=== PATIENT | female | born 1990 | race Caucasian/White ===

== ENCOUNTER 2017-05-10 07:43 | Inpatient (IN) ==
--- OUTSIDE RECORDS SUMMARY | 2017-05-14 01:32 | External Medical Summary | Continuity of Care Document ---
:1990 Author Organization [facility] Address [address] [place], [place] [id number] Phone Support Name Relationship Address Phone Td Salazar spouse [address] [phone] [place] [address] Allergies, Adverse Reactions, Alerts Substance Reaction Severity Status No Known Drug Allergies Unknown Active Medications Medication Instructions Dosage Effective Dates Status Comments (start - stop) VITAMINS take 1 tablet by oral - Active (unknown strength) route every day Problems Condition Effective Dates (start - stop) Clinical Status Pap Smear Screening, Cervix - Uterine size-date discrepancy, third - trimester 32 weeks gestation of - Encounter for test, result - positive Encounter for test, result positive state, incidental Irregular Menses Uterine size-date discrepancy, third - trimester 35 weeks gestation of - Uterine size-date discrepancy, third - trimester 31 weeks gestation of - Encntr for suprvsn of normal first - preg, third trimester Uterine size-date discrepancy, third - trimester Encntr for suprvsn of normal first - preg, third trimester 33 weeks gestation of - 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) - (routine) w/o abn findings Pap Smear Screening, Cervix Encntr screen for infections w sexl - mode of transmiss Encounter for screening for oth - infec/parastc diseases Encntr for suprvsn of normal first - preg, first trimester Encounter for screening of - mother 11 weeks gestation of - Encntr for suprvsn of normal first - preg, second trimester 15 weeks gestation of - Encntr for suprvsn of normal first - preg, second trimester 27 weeks gestation of - Encntr for suprvsn of normal first - preg, second trimester 19 weeks gestation of - Encntr for suprvsn of normal first - preg, second trimester 19 weeks gestation of - Encntr for suprvsn of normal first - preg, second trimester 23 weeks gestation of - Encntr for suprvsn of normal first - preg, third trimester 29 weeks gestation of - Procedures Procedure Date Ultrasnd preg uterus, flwup/repeat Results Test Name Date and Time Measure Units Reference Range Abnormal Flag Comments Unknown Advance Directives Directive Yes / No Effective Date File Name Unknown Encounters Encounter Practice Location Reason(s) Diagnoses Date Provider Care Team Description For Visit Members Annamarie Flanagan Uterine size-date Sobbing Referring In Womens discrepancy, 3-201 [place]ionic[place]. Provider: Dipika ARMIREZ, third [id number] 7 700 Ro PO Box weeks gestation Jose Smith, 1522, of Center [address] [place] [address], Suite Center [id number], 120, Blas 120, [place] Panchito Flanagan, tel: [place], [address], [id number]. [place]. tel: tel: [phone] Annamarie Flanagan Uterine size-date Sobbing Referring In Womens discrepancy, 0-201 Dionicio. Provider: Dipika RAMIREZ, third 7 700 Rodesirae Calderón trimesterEncntr Jose Smith, 1522, for suprvsn of Center [address], [facility], preg, third Suite Center [id number], [id number] weeks 120, Blas 120, [place] gestation of Panchito Flanagan, tel: [place], [address], [id number]. [place]. tel: tel: [phone] Annamarie Flanagan Uterine size-date Mar- Sobbing Referring In Womens Ultrasound discrepancy, 3-201 Dionicio. Provider: Dipika RAMIREZ, third 7 700 Ro PO Box weeks gestation Medical Law Luis, 1522, of Center [address] [place] [address], Suite Center , 120, Blas 120, [place] Panchito Flanagan, tel: [place], [address], [id number]. [place]. tel: tel: [phone] Annamarie Flanagan Uterine size-date Mar-0 Sobbing Referring In Womens discrepancy, 6-201 Dionicio. Provider: Dipika RAMIREZ, third 7 700 Ro PO Box weeks gestation Medical Law Luis, 1522, of Center [address] [place], [place] [address]Encntr [facility], for suprvsn of Suite Center , normal first 120, Blas 120, [place] preg, third Panchito Flanagan, tel: [place], [address], [id number]. [place]. tel: tel: [phone] Annamarie Flanagan Encntr for Amadou-1 Peres Referring In Womens suprvsn of normal 9-201 Phyllis. Provider: Dipika RAMIREZ, first preg, third 7 700 Ro Calderón [id number] weeks Medical Thanh Smith, 1522, gestation of Center [address] [place] [address], [place], 120, Center [id number], Panchito, [facility] 120, [place] Panchito RODRIGUEZ, tel:[phone] [place], , [place]. [id number]. tel: tel: [phone] Annamarie Flanagan Encntr for Amadou-0 Peres Referring In Womens suprvsn of normal 5-201 Phyllis. Provider: Dipika RAMIREZ, first preg, 7 700 Ro PO Box second Medical Law Luis, 1522, [email or web address] weeks Center [address] [place] [address], gestation of [place], 120, Center [id number], Panchito Bl[place] 120, [place] Panchito RODRIGUEZ, tel:[phone] [place], , [place]. [id number]. tel: tel:[phone] Annamarie Flanagan Encntr for May-0 Peres Referring In Womens suprvsn of normal 9-201 Phyllis. Provider: Dipika RAMIREZ, first preg, 7 700 Ro MCKEON Box second Medical Law J, 1522, [email or web address] weeks Center [address] [place] [address], gestation of Bl[place], 120, Center [id number], Panchito [facility] 120, [place] Panchito RODRIGUEZ, tel:+[phone] [place], , [place]. [id number]. tel: tel:[phone] Annamarie Flanagan Encntr for Apr-1 Peres Referring In Womens suprvsn of normal 0-201 Phyllis. Provider: Dipika RAMIREZ, first preg, 7 700 Ro Calderón second Jose Law J, 1522, [email or web address] weeks Center [address] [place] [address], gestation of [place]as [place], 120, [place] [id number], Panchito [facility] 120, [place] Panchito RODRIGUEZ, tel:+[phone] [place], , [place]. [id number]. tel: tel:[phone] Annamarie Flanagan Encntr for Apr-1 Peres Referring In Womens Ultrasound suprvsn of normal 0-201 Phyllis. Provider: Dipika RAMIREZ, first preg, 7 700 Ro Law J, 1522, [id number], gestation of [place], 120, [place] [id number], Panchito [facility] 120, [place] Panchito RODRIGUEZ, tel:+[phone] [place], , [place]. [id number]. tel: tel:[phone] Annamarie Flanagan Encntr for Mar-1 Peres Referring In Womens suprvsn of normal 4-201 Phyllis. Provider: Dipika RAMIREZ, first preg, 7 700 Ro Calderón second Jose Law J, 1522, [email or web address] weeks Center [address] [place] [address], gestation of Blas [place], 120, Center [id number], Panchito [facility] 120, [place] Panchito RODRIGUEZ, tel:[phone] [place], , [place]. [id number]. tel: tel:[phone] Annamarie Magallanesntr screen for Oct- Peres Referring In Womens infections w sexl - Phyllis. Provider: Dipika RAMIREZ, mode of 7 700 Ro PO Box transmissEncounte Medical Law J, 1522, r for screening Center [address] [place] [address], for oth , [facility] MICHAEL, infec/parastc 120, Center [id number], diseasesEncntr Panchito, [facility] 120, [place] for suprvsn of Panchito RODRIGUEZ, tel:+ normal first [phone] [place], preg, first , [place]. [id number]. trimesterEncounte tel: tel:[phone] r for [phone] screening of [id number] weeks gestation of Associates Panchito Irregular Menses Sep- Peres Referring In Womens Phyllis. Provider: Dipika RAMIREZ, 7 700 Ro PO Box Medical Law J, 1522, Center [facility], , [facility] Jose [place], 120, Center [id number], Panchito, [facility] 120, [place] Panchito RODRIGUEZ, tel:[phone] [place], , [place]. [id number]. tel: tel:[phone] Annamarie Flanagan Encounter for Law Referring In Womens test, - Ro. Provider: Dipika RAMIREZ, result 7 700 Ro PO Box positiveEncounter Medical Law J, 1522, for Center [address] [place] [address], test, result Dr [facility] MICHAEL, positive 120, Center [id number], state, incidental Flanagan, [facility] 120, [place] Panchito RODRIGUEZ, tel:[phone] [place], , [place]. [id number]. 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 Provider: Dipika RAMIREZ, (routine) w/o abn 6 700 Ro PO Box findingsPap Smear Medical Thanh Smith, 1522, Screening, Center [address], CervixPap Smear , [facility], Screening, Cervix 120, Center [id number], Panchito, [facility] 120, [place] Panchito RODRIUGEZ, tel:[phone] [place], [phone] , [place]. [id number]. tel: tel: [phone] Family History Family Member Diagnosis Age At Onset No family history of Breast Cancer Paternal Grandfather Cardiovascular Disease No family history of Thyroid Disorder No family history of Lung Disease No family history of Venous Thrombosis No family history of Diabetes No family history of Pulmonary Embolism Paternal Grandmother Kidney Disease No family history of Epilepsy No family history of Hypertension No family history of Osteoporosis No family history of Stroke No family history of Colon Cancer No family history of Uterine Cancer No family history of Ovarian Cancer Immunizations Vaccine Date Status Comments Tdap completed Source: New Immunization Record Influenza, injectable, completed Source: New Immunization Record quadrivalent, preservative free, 3 yrs or older Payers Payer name Insurance type Covered constitution party ID Authorization(s) [facility] [id number] [facility] Out Of State [id number] [facility] [id number] [facility] [id number] Social History Type Description Quantity Date Captured Unknown Vital Signs Date / Height Weight BMI Pulse Blood Temperature Respiratory Body Head BMI Time: Rate Pressure Rate Surface Circumference percentile Area Unknown Chief Complaint And Reason For Visit Unknown Chief Complaint And Reason For Visit Reason For Referral Reason For Referral Unknown Plan Of Care Date Type Action Status Appointment Herminia Salazar BOOKED Future Order: Radiology Order Ultrasound OB Follow-up ([id number]) Ordered Future Order: Lab Order Pap Smear With HPV Reflex If ASCUS Ordered ([id number]) Future Order: Radiology Order Complete OB Ultrasound > 14 Ordered Weeks ([id number]) Date Type Problem Goal Intervention Status Start Date Unknown. History Of Present Illness Encounter Date Complaint History Of Present Illness This patient has no known history of present illness Functional Status Encounter Date Functional Assessment Cognitive Assessment Unknown Medications Administered Medication Instructions Dosage Effective Dates (start - stop) Status Comments Drug Treatment Unknown Instructions Date Instruction Additional Information risk factors identified by history anticipated course of care nutrition and weight gain counseling, special diet toxoplasmosis precautions (cats / raw meat) sexual activity exercise indications for ultrasound influenza vaccine environmental / work hazards travel tobacco (ask, advise, assess, assist and arrange) HIV and other routine tests alcohol illicit / recreational drugs use of any medications (including supplements, vitamins, herbs, OTC drugs) smoking counseling domestic violence seat belt use childbirth classes / hospital facilities hospital registration genetic testing new ob handbook
--- OUTSIDE RECORDS SUMMARY | 2017-05-14 01:33 | External Medical Summary | Continuity of Care Document ---
:1990 Author Organization [facility] Address [address] [place], [place] [address] Phone Support Name Relationship Address Phone Td Salazar spouse [address] [phone] [place] [address] Allergies, Adverse Reactions, Alerts Substance Reaction Severity Status No Known Drug Allergies Unknown Active Medications Medication Instructions Dosage Effective Dates Status Comments (start - stop) VITAMINS take 1 tablet by oral - Active (unknown strength) route every day Problems Condition Effective Dates (start - stop) Clinical Status Pap Smear Screening, Cervix - Encntr for suprvsn of normal first - preg, third trimester 37 weeks gestation of - Encounter for test, result - positive Encounter for test, result positive state, incidental Irregular Menses Uterine size-date discrepancy, third - trimester Encntr for suprvsn of normal first - preg, third trimester 39 weeks gestation of - Uterine size-date discrepancy, third - trimester Encounter for screening of - mother 35 weeks gestation of - Uterine size-date discrepancy, third - trimester Encntr for suprvsn of normal first - preg, third trimester 31 weeks gestation of - Pap Smear Screening, Cervix 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) - (routine) w/o abn findings Encntr screen for infections w sexl - mode of transmiss Encounter for screening for oth - infec/parastc diseases Encntr for suprvsn of normal first - preg, first trimester Encounter for screening of - mother 11 weeks gestation of - Uterine size-date discrepancy, third - trimester 32 weeks gestation of - Uterine size-date discrepancy, third - trimester Encntr for suprvsn of normal first - preg, third trimester 33 weeks gestation of - Uterine size-date discrepancy, third - trimester Encntr for suprvsn of normal first - preg, third trimester 38 weeks gestation of - Encntr for suprvsn [...] third trimester 29 weeks gestation of - Encntr for suprvsn of normal first - preg, third trimester 40 weeks gestation of - 36 weeks gestation of - Encntr for suprvsn of normal first - preg, third trimester Procedures Procedure Date OB 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 Provider: Dipika RAMIREZ, first preg, third 7 700 Ro PO Box [email or web address] weeks Medical Pequea J, 1522, gestation of Center [address] [place] [address], [facility], [facility], Suite Center [id number], 120, Blas 120, [place] Panchito Flanagan, tel: [place], [place], [address], [id number]. [place]. tel: tel: [phone] Annamarie Flanagan Uterine size-date Aug-2 Sobbing Referring In Womens discrepancy, 9-201 [place]. Provider: Health ASHLEY, third 7 700 Ro Calderón trimesterEncntr [facility] J, 1522, for suprvsn of Center [address] [place] [address], [address], [facility], preg, third Suite Center [id number], [email or web address] weeks 120, Blas 120, [place] gestation of Panchito Flanagan, tel: [place], [address], [id number]. [place]. tel: tel: [phone] Annamarie Flanagan Uterine size-date Apr-2 Sobbing Referring In Womens discrepancy, 2-201 [place]. Provider: Health ASHLEY, third 7 700 Ro Calderón trimesterEncntr [facility] J, 1522, for suprvsn of Center [address] [place] [address], normal first [facility], [facility], preg, third Suite Center [id number], [id number] weeks 120, Blas 120, [place] gestation of Panchito Flanagan, tel: [place], [place], [address], [id number]. [place]. tel: tel: [phone] Annamarie Kirkland for Aug-1 Sobbing Referring In Womens suprvsn of normal 6-201 [place]. Provider: Health ASHLEY, first preg, third 7 700 Ro Calderón [id number] weeks Medical Law J, 1522, gestation of Center [address] [place] [address], [facility], [facility], Suite Center [id number], 120, Blas 120, [place] Panchito Flanagan, tel: [place], [place], [address], [id number]. [place]. tel: tel: [phone] Annamarie Flanagan 36 weeks Aug-1 Sobbing Referring In Womens gestation of 0-201 [place]. Provider: Dipika RAMIREZ, pregnancyEncntr 7 700 Ro PO Box for suprvsn of Jose Smith, 1522, normal first Center [address] [place], [facility], third [facility], trimester Suite Center [id number], 120, Blas 120, [place] Panchito Flanagan, tel:+ [place], [address], [id number]. [place]. tel: tel: [phone] Annamarie Flanagan Uterine size-date Apr-0 Sobbing Referring In Womens discrepancy, 3-201 [place]. Provider: [facility] ASHLEY, psychiatric 7 700 Ro PO Box trimesterEncounte Jose Smith, 1522, r for Center [address] [place] [address], screening of [facility], [email or web address] weeks Suite Center [id number], gestation of 120, Blas 120, [place] Panchito Flanagan, tel:+ [place], [address], [id number]. [place]. tel: tel: [phone] Annamarie Flanagan Uterine size-date Mar-2 Sobbing Referring In Womens discrepancy, 0-201 [place]. Provider: [facility] ASHLEY, psychiatric 7 700 Ro PO Box trimesterEncntr Jose Smith, 1522, for suprvsn of Center [address] [place] [address], normal first [facility], preg, third Suite Center [id number], [email or web address] weeks 120, Blas 120, [place] gestation of Panchito Flanagan, tel:+ [place], [address], [id number]. [place]. tel: tel: [phone] Annamarie Flanagan Uterine size-date Mar-1 Sobbing Referring In Womens Ultrasound discrepancy, 3- [place]. Provider: Dipika RAMIREZ, third [id number] 7 700 Ro PO Box weeks gestation Jose Smith, 1522, of Center [address] [place] [address], Suite Center [id number], 120, Blas 120, [place] Panchito Flanagan, tel: [place], [address], [id number]. [place]. tel: tel: [phone] Annamarie Flanagan Uterine size-date Mar-0 Sobbing Referring In Womens discrepancy, 6-201 [place]. Provider: Health ASHLEY, third 7 700 Ro Calderón trimesterEncntr Medical Thanh Smith, 1522, for suprvsn of Center [address] [place] [address], [address], Medical MICHAEL, preg, third Suite Center [id number], [id number] weeks 120, Blas 120, [place] gestation of Panchito Flanagan, tel:+ [place], [address], [id number]. [place]. tel: tel: [phone] Annamarie Flanagan Encntr for Amadou-1 Peres Referring In Womens suprvsn of normal 9-201 Phyllis. Provider: Health PA, first preg, third 7 700 Ro MCKEON Box [email or web address] weeks Medical Thanh Smith, 1522, gestation of [place] [address] [place], Blas Duval [facility], 120, Center [id number], [facility], [place] Panchito RODRIGUEZ, tel:[phone] [place], , [place]. [id number]. tel: tel: [phone] Annamarie Flanagan Encntr for Amadou-0 Peres Referring In Womens suprvsn of normal 5-201 Phyllis. Provider: Health PA, first preg, 7 700 Ro Calderón second [facility] Thanh Smith, 1522, [id number] weeks Center [address] [place] [address], gestation of Blas Duval, 120, Center [id number], Panchito [facility] 120, [place] Panchito RODRIGUEZ, tel:[phone] [place], , [place]. [id number]. tel: tel: [phone] Annamarie Flanagan Encntr for May-0 Peres Referring In Womens suprvsn of normal 9-201 Phyllis. Provider: Health PA, first preg, 7 700 Ro Calderón second Jose Thanh Smith, 1522, [id number] weeks [address], gestation of Blas [place], 120, Center [id number], [facility], [place] Panchito RODRIGUEZ, tel: [phone] [place], , [place]. [id number]. tel: tel: [phone] Associates Flanagan Encntr for Apr-1 Peres Referring In Womens suprvsn of normal 0-201 Phyllis. Provider: Dipika RAMIREZ, first preg, 7 700 Ro Law Luis, 1522, [id number] weeks Center [address] [place], gestation of Blas [place], 120, Center [id number], Panchito [facility] 120, [place] Panchito RODRIGUEZ, tel:+ [phone] [place], , [place]. [id number]. tel: tel:+[phone] Annamarie Flanagan Encntr for Apr-1 Peres Referring In Womens Ultrasound suprvsn of normal 0-201 Phyllis. Provider: Dipika RAMIREZ, first preg, [address] [facility] Jose Law Luis, 1522, [id number] weeks Center [address] [place] [address], gestation of Blas [place], 120, Center [id number], Panchito [facility] 120, [place] Panchito RODRIGUEZ, tel:[phone] [place], , [place]. [id number]. tel: tel:+ [phone] Annamarie Flanagan Encntr for Mar-1 Peres Referring In Womens suprvsn of normal 4-201 Phyllis. Provider: Dipika RAMIREZ, first preg, 7 700 Ro Law J, 1522, [id number] weeks Center [address] [place] [address], gestation of Blas Du[place], 120, Center [id number], Panchito [facility] 120, [place] Panchito RODRIGUEZ, tel:[phone] [place], , [place]. [id number]. tel: tel:+[phone] Annamarie Flanagan Encntr screen for Feb-1 Peres Referring In Womens infections w sexl 4-201 Phyllis. Provider: Dipika RAMIREZ, mode of 7 700 Ro Calderón transmissEncounte Jose Law Luis, 1522, r for screening [address], for oth [place], infec/parastc 120, Center [id number], diseasesEncntr Panchito [facility] 120, [place] for suprvsn of Panchito RODRIGUEZ, tel:+[phone] normal first [id number] [place], preg, first , [place]. [id number]. trimesterEncounte tel: tel:316 r for [phone] screening of weeks gestation of Associates Panchito Irregular Menses Peres Referring In Womens 7 Phyllis. Provider: Dipika RAMIREZ, 7 700 Ro PO Box Jose Smith, 1522, Center [facility] [place], , [facility] [place], 120, Center [id number], Panchito [facility] 120, [place] Panchito RODRIGUEZ, tel:[phone] [place], , [place]. [id number]. tel: tel:[phone] Associates Panchito Encounter for Thanh Referring In Women test, Ro. Provider: Dipika RAMIREZ, result 7 700 Ro PO Box positiveEncounter Jose Smith, 1522, for Center [facility] [place], test, result , [facility] Jose RODRIGUEZ, positive 120, Center [id number], state, incidental Flanagan, [facility] 120, [place] Panchito RODRIGUEZ, tel:[phone] [place], , [place]. [id number]. tel: tel:[phone] Annamarie Flanagan Pap Smear Thanh Referring In Womens Screening, 3 Ro. Provider: Dipika RAMIREZ, CervixPap Smear 6 700 Ro PO Box Screening, Jose Smith, 1522, CervixEncntr for Center [address] [place] [address], lining mechanic exam , [facility] Jose RODRIGUEZ, (general) 120, Center [id number], (routine) w/o abn Flanagan, [facility] 120, [place] findings Panchito RODRIGUEZ, tel:[phone] [place], , [place]. [id number]. tel: tel:[phone] Family History Family Member Diagnosis Age At [...] older Payers Payer name Insurance type Covered republican ID Authorization(s) [facility] [id number] [facility] Out Of State [id number] [facility] [id number] [facility] [id number] Social History Type Description Quantity Date Captured Alcohol Use Details Caffeine Use Details Unknown Tobacco Use Status Unknown Smoking Status Never smoker Vital Signs Date / Height Weight BMI Pulse Blood Temperature Respiratory Body Head BMI Time: Rate Pressure Rate Surface Circumference percentile Area 156.00 29.1 119/73 2017 lbs 8 mm[Hg] 4:33 kg/m PM eter (2) Chief Complaint And Reason For Visit Unknown Chief Complaint And Reason For Visit Reason For Referral Reason For Referral Unknown Plan Of Care Date Type Action Status Future Order: Lab Order Pap Smear With HPV Reflex If ASCUS Ordered (WPMPap1) Future Order: Radiology Order Ultrasound OB Follow-up ([id number]) Ordered Future Order: Radiology Order Complete OB Ultrasound > 14 Ordered Weeks ([id number]) Date Type Problem Goal Intervention Status Start [...]
--- OUTSIDE RECORDS SUMMARY | 2017-05-14 01:33 | External Medical Summary | Continuity of Care Document ---
:1990 Author Organization [facility] Address [address] [place], [place] [address] Phone Support Name Relationship Address Phone Td Salazar spouse [address] [phone] [place] [address] Allergies, Adverse Reactions, Alerts Substance Reaction Severity [...] - mother 35 weeks gestation of - Encounter for test, result - positive Encounter for test, result positive state, incidental Irregular Menses Uterine size-date discrepancy, third - trimester Encntr for suprvsn of normal first - preg, third trimester 31 weeks gestation of - Uterine size-date discrepancy, third - trimester 32 weeks gestation of - Uterine size-date discrepancy, third - trimester Encntr for suprvsn of normal first - preg, third trimester 38 weeks gestation of - Uterine size-date discrepancy, third - trimester Encntr for suprvsn of normal first - preg, third trimester 33 weeks gestation of - 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 for physical therapy assistant exam (general) - (routine) w/o abn findings [...] second trimester 19 weeks gestation of - 23 weeks gestation of - Encntr for suprvsn of normal first - preg, second trimester Encntr for suprvsn of normal first - preg, third trimester 29 weeks gestation of - Encntr for suprvsn of normal first - preg, third trimester 36 weeks gestation of - Encntr for suprvsn of normal first - preg, third trimester 37 weeks gestation of - Procedures Procedure Date OB Visit No Charge Cult, pathgnc orgnsm, screen Results Test Name Date and Time Measure Units Reference Range Abnormal Flag Comments Panel Description: STREPTOCOCCUS, GROUP B CULTURE STREPTOCOCCUS, GROUP B 16:00:00 SEE NOTE STREPTOCOCCUS, GROUP B CULTURE CULTURE MICRO NUMBER: [id number] TEST STATUS: FINAL SPECIMEN SOURCE: VAGINAL/ANORECTAL SPECIMEN QUALITY: ADEQUATE RESULT: No group B Streptococcus isolatedTest performed at [id number] [address]Bxfwtlgk: WILL MENA DO,MPH Advance Directives Directive Yes / No Effective Date File Name Unknown Encounters Encounter Practice Location Reason(s) Diagnoses Date Provider Care Team Description For Visit Members Annamarie Flanagan Uterine size-date Aug-2 Sobbing Referring In Womens discrepancy, 2-201 [place]. Provider: Health ASHLEY, third 7 700 [address] Calderón trimesterEncntr Jose Smith, 1522, for suprvsn of Center [address] [place] [address], [facility] first [facility], preg, third Suite Center [id number], [email or web address] weeks 120, Blas 120, [place] gestation of Panchito Flanagan, tel:+ [place], [address], [id number]. [place]. tel: tel: [phone] Annamarie Flanagan Encntr for Apr- Sobbing Referring In Womens suprvsn of normal 6-201 [place]. Provider: Health ASHLEY, first preg, third 7 700 Ro Calderón [id number] weeks Jose Smith, 1522, gestation of Center [address] [place] [address], [facility], Suite Center [id number], 120, Blas 120, [place] Panchito Flanagan, tel: [place], [address], [id number]. [place]. tel: tel: [phone] Annamarie Flanagan Encntr for Apr- Sobbing Referring In Womens suprvsn of normal 0-201 [place]. Provider: Health ASHLEY, first preg, third 7 700 Ro Calderón [id number] weeks Jose Smith, 1522, gestation of Center [address] [place] [address], [facility], Suite Center [id number], 120, Blas 120, [place] Panchito Flanagan, tel:+ [place], [address], [id number]. [place]. tel: tel: [phone] Annamarie Flanagan Uterine size-date Apr-0 Sobbing Referring In Womens discrepancy, 3-201 [place]. Provider: Dipika RAMIREZ, third 7 700 Ro Calderón trimesterEncounte Jose Smith, 1522, r for Center [address] [place] [address], screening of [facility], [id number] weeks Suite Center [id number], gestation of 120, Blas 120, [place] Panchito Fl[place]agan, [place]: [place], [address], [id number]. [place]. tel: tel: [phone] Annamarie Flanagan Uterine size-date Mar-2 Sobbing Referring In Womens discrepancy, 0-201 Dionicio. Provider: Dipika RAMIREZ, third 7 700 Ro Calderón trimesterEncntr Jose Smith, 1522, for suprvsn of [address], preg, third Suite Center [id number], [email or web address] weeks 120, Blas 120, [place] gestation of Panchito Flanagan, tel:+ [place], [address], [id number]. [place]. tel: tel: [phone] Annamarie Flanagan Uterine size-date Mar-1 Sobbing Referring In Womens Ultrasound discrepancy, 3-201 [place]. Provider: Dipika RAMIREZ, third [email or web address] 7 700 Ro MCKEON Box weeks gestation Jose Smith, 1522, of Center [address] [place] [address], Suite Center [id number], 120, Blas 120, [place] Panchito Flanagan, tel: [place], [address], [id number]. [place]. tel: tel: [phone] Annamarie Flanagan Uterine size-date Mar-0 Sobbing Referring In Womens discrepancy, 6-201 [place]. Provider: Dipika RAMIREZ, third 7 700 Ro Calderón trimesterEncntjake Smith, 1522, for suprvsn of [address] [place], preg, third Suite Center [id number], [email or web address] weeks 120, Blas 120, [place] gestation of Panchito Flanagan, tel: [place], [place], [address], [id number]. [place]. tel: tel: [phone] Annamarie Flanagan Encrashid for Amadou-1 Peres Referring In Womens suprvsn of normal 9-201 Phyllis. Provider: Dipika RAMIREZ, first preg, third 7 700 Ro MCKEON Box weeks Jose Smith, 1522, gestation of Center [address] [place] [address], [facility] [place], 120, Center [id number], Flanagan, Blas 120, [place] Panchito RODRIGUEZ, tel:[phone] [place], , [place]. [id number]. tel: tel:[phone] Annamarie Flanagan Encntr for Amadou-0 Peres Referring In Womens suprvsn of normal 5-201 Phyllis. Provider: Dipika RAMIREZ, first preg, 7 700 Ro PO Box second Medical Law J, 1522, [id number] weeks Center [address] [place], gestation of [place], 120, Center [id number], Panchito [facility] 120, [place] Panchito RODRIGUEZ, tel:[phone] [place], , [place]. [id number]. tel: tel:[phone] Annamarie Flanagan 23 weeks May-0 Peres Referring In Womens gestation of 9-201 Phyllis. Provider: Dipika RAMIREZ, pregnancyEncntr 7 Ro PO Box for suprvsn of Medical Law J, 1522, normal first Center [address] [place] [address], preg, second [place], trimester 120, Center [id number], Panchito [facility] 120, [place] Panchito RODRIGUEZ, tel: [phone] [place], , [place]. [id number]. tel: tel:[phone] Annamarie Flanagan Encntr for Apr-1 Peres Referring In Womens suprvsn of normal 0-201 Phyllis. Provider: Dipika RAMIREZ, first preg, 7 Ro PO Stephane second Jose Law J, 1522, [email or web address] weeks Center [address] [place] [address], gestation of [place], 120, Center [id number], Panchito [facility] 120, [place] Panchito RODRIGUEZ, tel: [phone] [place], , [place]. [id number]. tel: tel:[phone] Annamarie Flanagan Encntr for Apr-1 Peres Referring In Womens Ultrasound suprvsn of normal 0-201 Phyllis. Provider: Dipika RAMIREZ, first preg, 7 700 Ro PO Box second Jose Law J, 1522, [id number] weeks Center [address] [place] [address], gestation of [place], 120, Center [id number], Panchito [facility] 120, [place] Panchito RODRIGUEZ, tel: [phone] [place], , [place]. [id number]. tel: tel: [phone] Annamarie Flanagan Encntr for Nov- Peres Referring In Womens suprvsn of normal Phyllis. Provider: Dipika RAMIREZ, first preg, 7 700 Ro PO Box second Medical Thanh J, 1522, [email or web address] weeks Center [facility] [place], gestation of , Blas RODRIGUEZ, 120, Center [id number], [facility], [place] Panchito RODRIGUEZ, tel: [phone] [place], , [place]. [id number]. tel: tel:[phone] Annamarie Flanagan Encntr screen for Oct- Peres Referring In Womens infections w sexl - Phyllis. Provider: Dipika RAMIREZ, mode of 7 700 Ro MCKEON Box transmissEncounte Jose Smith, 1522, r for screening Center [address] [place] [address], for oth Dr [facility] Jose RODRIGUEZ, infec/parastc 120, Center [id number], [facility], [place] for suprvsn of [place], Panchito, tel: normal first [id number] [place], preg, first , [place]. [id number]. trimesterEncounte tel: tel:[phone] r for [phone] screening of weeks gestation of Associates [facility] Irregular Menses Peres Referring In Womens Phyllis. Provider: Dipika RAMIREZ, 7 700 [address] Calderón Jose Law J, 1522, Center [facility] [place], Blas [place], 120, Center [id number], Panchito [facility] 120, [place] Panchito RODRIGUEZ, tel:[phone] [place], , [place]. [id number]. tel: tel:[phone] Annamarie Flanagan Encounter for Sep-0 Law Referring In Womens test, -201 Ro. Provider: Dipika RAMIREZ, result 7 700 Ro PO Box positiveEncounter Jose Smith, 1522, for Center 700 [place], test, result [facility], positive 120, Center [id number], state, incidental Flanagan, [facility] 120, Panchito RODRIGUEZ, tel:[phone] [place], , . [id number]. tel: tel:[phone] Associates [facility] Encntr for physical therapy assistant Thanh Referring In Womens exam (general) 3-201 Ro. Provider: [facility] ASHLEY, (routine) w/o abn 6 700 Ro PO Box findingsPap Smear Medical Thanh J, 1522, Screening, Center [address] [place], CervixPap Smear Dr [facility], Screening, Cervix 120, Center [id number], Flanagan, [facility] 120, MICHAELPanchito, tel:[phone] [place], , [place]. [id number]. tel: tel:[phone] Family History Family Member Diagnosis Age At [...] older Payers Payer name Insurance type Covered democrat ID Authorization(s) [facility] [id number] [facility] Out Of State [id number] [facility] [id number] [facility] [id number] Social History Type Description Quantity Date Captured Alcohol Use Details Caffeine Use Details Tobacco Use Status Never smoked tobacco Smoking Status Never smoker Vital Signs Date / Height Weight BMI Pulse Blood Temperature Respiratory Body Head BMI Time: Rate Pressure Rate Surface Circumference percentile Area 155.20 29.0 125/72 lbs 4 mm[Hg] 3:47 kg/m PM eter (2) 9 3:43 kg/m PM eter (2) Chief Complaint And Reason For Visit Unknown Chief Complaint And Reason For Visit Reason For Referral Reason For Referral Unknown Plan Of Care Date Type Action Status Appointment Herminia Salazar BOOKED Appointment Herminia Salazar [facility] [facility]- BOOKED [place] Future Order: Radiology Order Ultrasound OB Follow-up ([id number]) Ordered Future Order: Lab Order Pap Smear With HPV Reflex If ASCUS Ordered ([id number]) Future Order: Radiology Order Complete OB Ultrasound > 14 Ordered Weeks ([id number]) Date Type Problem Goal Intervention Status Start [...] tobacco (ask, advise, assess, assist and arrange) alcohol HIV and other routine tests illicit / recreational drugs use of any medications (including supplements, vitamins, herbs, OTC drugs) smoking counseling domestic violence seat belt use childbirth classes / hospital facilities hospital registration genetic testing new ob handbook
--- OUTSIDE RECORDS SUMMARY | 2017-05-14 01:33 | External Medical Summary | Continuity of Care Document ---
:1990 Author Organization [facility] [employer] [facility] Address [address] [place], [place] [address] Phone Support Name Relationship Address Phone Td Salazar spouse [address] [phone] [place] [address] Allergies, Adverse Reactions, Alerts Substance Reaction Severity [...] third trimester 33 weeks gestation of - Encounter for test, result - positive Encounter for test, result positive state, incidental Irregular Menses Uterine size-date discrepancy, third - trimester Encounter for screening of - mother 35 weeks gestation of - Uterine size-date discrepancy, third - trimester Encntr for suprvsn of normal first - preg, third trimester 31 weeks gestation of - Uterine size-date discrepancy, third - trimester 32 weeks gestation of - 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 Provider: Dipika RAMIREZ, third 7 700 Ro Calderón trimesterEncounte Jose Smith, 1522, r for Center [address] [place] [address], screening of [facility], [email or web address] weeks Suite Center [id number], gestation of 120, Blas 120, [place] Panchito Flanagan, tel:+ [place] RODRIGUE[place], [address], [id number]. [place]. tel: tel: [phone] Annamarie Flanagan Uterine size-date Sobbing Referring In Womens discrepancy, 0-201 Dionicio. Provider: Dipika RAMIREZ, third 7 700 Ro Calderón trimesterEncntr Jose Smith, 1522, for suprvsn of Center [address] [place] [address], normal first [facility], [facility], preg, third Suite Center [id number], [id number] weeks 120, Blas 120, [place] gestation of Panchito Flanagan, tel: [place], [address], [id number]. [place]. tel: tel: [phone] Annamarie Flanagan Uterine size-date Mar- Sobbing Referring In Womens Ultrasound discrepancy, 3- [place]. Provider: Health ASHLEY, third [email or web address] 7 700 Ro PO Box weeks gestation Medical Law Luis, 1522, of Center [address] [place] [address], [facility], [facility], Suite Center [id number], 120, Blas 120, [place] Panchito Flanagan, tel: [place], [address], [id number]. [place]. tel: tel: [phone] Annamarie Flanagan Uterine size-date Mar-0 Sobbing Referring In Womens discrepancy, 6- [place]. Provider: Health ASHLEY, third 7 700 Ro PO Box trimesterEncntr Medical [place] Luis, 1522, for suprvsn of [address], allamuchy first [facility], [facility] [place], preg, third Suite Center [id number], weeks 120, Blas 120, [place] gestation of Panchito Flanagan, tel: [place], [address], [id number]. [place]. tel: tel: [phone] Annamarie Kirkland for Amadou-1 Peres Referring In Womens suprvsn of normal 9-201 Phyllis. Provider: Health ASHLEY, first preg, third 7 700 Ro PO Box [id number] weeks Medical Thanh Smith, 1522, gestation of Center [address] [place] [address], [place], 120, Center [id number], Flanagan, Blas 120, [place] Panchito RODRIGUEZ, tel:[phone] [place], , [place]. [id number]. tel: tel: [phone] Annamarie Kirkland for Amadou-0 Peres Referring In Womens suprvsn of normal 5-201 Phyllis. Provider: Health ASHLEY, first preg, 7 700 Ro PO Box second Medical Law J, 1522, [email or web address] weeks Center [address] [place] [address], gestation of [place], 120, Center [id number], Panchito, Blas 120, [place] Panchito RODRIGUEZ, tel:+ [phone] [place], , [place]. [id number]. tel: tel:[phone] Annamarie Flanagan Encntr for May-0 Peres Referring In Womens suprvsn of normal 9-201 Phyllis. Provider: Dipika RAMIREZ, first preg, 7 700 Ro Calderón donald Jose Law Luis, 1522, [id number] weeks Center [address] [place] [address], gestation of [place], 120, Center [id number], Panchito, [facility] 120, [place] Panchito RODRIGUEZ, tel:[phone] [place], , [place]. [id number]. tel: tel:[phone] Annamarie Flanagan Encntr for Apr-1 Peres Referring In Womens suprvsn of normal 0-201 Phyllis. Provider: Dipika RAMIREZ, first preg, 7 Ro Calderón donald Jose Thanh Smith, 1522, [email or web address], gestation of [place], 120, [place] [id number], [facility], [place] Panchito RODRIGUEZ, tel:[phone] [place], , [place]. [id number]. tel: tel:[phone] Annamarie Flanagan Encntr for Apr-1 Peres Referring In Womens Ultrasound suprvsn of normal 0-201 Phyllis. Provider: Dipika RAMIREZ, first preg, 7 Ro Calderón donald Jose Thanh Smith, 1522, [email or web address] weeks [address], gestation of [place], 120, Center [id number], Panchito, [facility] 120, [place] Panchito RODRIGUEZ, tel:[phone] [place], , [place]. [id number]. tel: tel:[phone] Annamarie Flanagan Encntr for Mar-1 Peres Referring In Womens suprvsn of normal 4-201 Phyllis. Provider: Dipika RAMIREZ, first preg, 7 Ro Calderón donald Jose Law Luis, 1522, [email or web address], gestation of [place], 120, Center [id number], Panchito [facility] 120, [place] Panchito RODRIGUEZ, tel:[phone] [place], , [place]. [id number]. tel: tel:[phone] Annamarie Magallanesntr screen for Oct- Peres Referring In Womens infections w sexl - Phyllis. Provider: Dipika RAMIREZ, mode of 7 700 Ro Calderón transmissEncounte Jose Thanh Smith, 1522, r for screening Center [address] [place] [address], for oth , Blas RODRIGUEZ, infec/parastc 120, Center [id number], diseasesEncntr Panchito [facility] 120, [place] for suprvsn of Panchito RODRIGUEZ, tel:[phone] normal first [id number] [place], preg, first , [place]. [id number]. trimesterEncounte tel: tel:316 r for [phone] screening of weeks gestation of Annamarie Flanagan Irregular Menses Sep- Peres Referring In Womens Phyllis. Provider: Dipika RAMIREZ, 7 700 Ro PO Box Jose Thanh Smith, 1522, Center [facility] [place], 120, Center [id number], Panchito [facility] 120, [place] Panchito RODRIGUEZ, tel:[phone] [place], , [place]. [id number]. tel: tel:+[phone] Annamarie Flanagan Encounter for Law Referring In Womens test, Ro. Provider: Health ASHLEY, result 7 700 Ro PO Box positiveEncounter Medical Thanh Smith, 1522, for Center [address] [place] [address], test, result [place], positive 120, Center [id number], state, incidental Panchito [facility] 120, [place] Panchito RODRIGUEZ, tel:[phone] [place], , [place]. [id number]. tel: tel:[phone] Annamarie Flanagan Encntr for emergency department physician Law Referring In Womens exam (general) 3-201 Ro. Provider: Health ASHLEY, (routine) w/o abn 6 700 Ro PO Box findingsPap Smear Medical Thanh Smith, 1522, Screening, Center [address] [place], CervixPap Smear , [facility] [place], Screening, Cervix 120, Center [id number], Flanagan, Blas 120, [place] MICHAEL Flanagan, tel:[phone] [place], [address] , [place]. [id number]. tel: tel: [phone] Family History Family Member Diagnosis Age At [...] name Insurance type Covered democrat ID Authorization(s) [facility] [id number] [facility] Out Of State [id number] [facility] [id number] [facility] [id number] Social History Type Description Quantity Date Captured Alcohol Use Details Caffeine Use Details Unknown Tobacco Use Status Unknown Smoking Status Never smoker Vital Signs Date / Height Weight BMI Pulse Blood Temperature Respiratory Body Head BMI Time: Rate Pressure Rate Surface Circumference percentile Area 152.80 28.5 / lbs 9 mm[Hg] 3:41 kg/m PM eter (2) Chief Complaint And Reason For Visit Unknown Chief Complaint And Reason For Visit Reason For Referral Reason For Referral Unknown Plan Of Care Date Type Action Status Appointment Herminia Salazar BOOKED Future Order: Radiology Order Ultrasound OB Follow-up ([id number]) Ordered Future Order: Lab Order Pap Smear With HPV Reflex If ASCUS Ordered ([id number]) Future Order: Radiology Order Complete OB Ultrasound > 14 Ordered Weeks ([id number]) Date Type Problem Goal Intervention Status Start [...]
--- OUTSIDE RECORDS SUMMARY | 2017-05-14 01:33 | External Medical Summary | Continuity of Care Document ---
:1990 Author Organization [facility] Address [address] [place], [place] [id number] Phone Support Name Relationship Address Phone Td Salazar spouse [address] [phone] [place] [address] Allergies, Adverse Reactions, Alerts Substance Reaction Severity Status No Known Drug Allergies Unknown Active Medications Medication Instructions Dosage Effective Dates Status Comments (start - stop) VITAMINS take 1 tablet by oral - Active (unknown strength) route every day Problems Condition Effective Dates (start - stop) Clinical Status Pap Smear Screening, Cervix - Encounter for test, result - positive Encounter for test, result positive state, incidental Irregular Menses Uterine size-date discrepancy, third - trimester 35 weeks gestation of - Uterine size-date discrepancy, third - trimester 31 weeks gestation of - Encntr for suprvsn of normal first - preg, third trimester Uterine size-date discrepancy, third - trimester 32 weeks gestation of - Uterine size-date discrepancy, third - trimester Encntr for suprvsn of normal first - preg, third trimester 33 weeks gestation of - 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 Provider: Dipika RAMIREZ, third [email or web address] 7 700 Ro PO Box weeks gestation Jose Smith, 1522, of Center [address] [place] [address], Suite Center [id number], 120, Blas 120, [place], [place]: [place], [address], [id number]. [place]. tel: tel: [phone] Annamarie Flanagan Uterine size-date Sobbing Referring In Womens discrepancy, 0-201 Dionicio. Provider: Dipika RAMIREZ, third 7 700 Rocarmella Calderón trimesterEncntr Jose Smith, 1522, for suprvsn of Center [address] [place] [address], [facility], preg, third Suite Center [id number], [email or web address] weeks 120, Blas 120, [place] gestation of Panchito Flanaagn, tel: [place], [address], [id number]. [place]. tel: tel: [phone] Annamarie Flanagan Sobbing Referring In Womens 3-201 Chauncey. Provider: Dipika RAMIREZ, 7 700 Ro Calderón Jose Smith, 1522, Center [address] [place] [address], Suite Center [id number], 120, Blas 120, [place] Panchito [place], [place]: [place], [address], [id number]. [place]. tel: tel: [phone] Annamarie Flanagan Uterine size-date Mar- Sobbing Referring In Womens Ultrasound discrepancy, 3-201 Chauncey. Provider: Dipika RAMIREZ, third 7 700 Ro Calderón weeks gestation Jose Thanh Smith, 1522, of Center [address] [place] [address], Suite Center [id number], 120, Blas 120, [place] Panchito Fl[place]agan, tel: [place], [address], [id number]. [place]. tel: tel: [phone] Annamarie Flanagan Uterine size-date Mar-0 Sobbing Referring In Womens discrepancy, 6-201 Chauncey. Provider: Dipika RAMIREZ, third [email or web address] 7 700 Ro Calderón weeks gestation Jose Thanh Smith, 1522, of Center [address] [place] [address], for suprvsn of Suite Center [id number], normal first 120, Blas 120, [place] preg, third Panchito Flanagan, tel: [place], [address], [id number]. [place]. tel: tel: [phone] Annamarie Kirkland for Amadou-1 Peres Referring In Womens suprvsn of normal 9-201 Phyllis. Provider: Dipika RAMIREZ, first preg, third 7 700 Ro Calderón [email or web address] weeks Jose Smith, 1522, gestation of Center [address] [place] [address], , [facility] [place], 120, Center [id number], Flanagan, Blas 120, [place] Panchito RODRIGUEZ, tel:[phone] [place], , [place]. [id number]. tel: tel: [phone] Associates Flanagan Encntr for Amadou-0 Peres Referring In Womens suprvsn of normal 5-201 Phyllis. Provider: Dipika RAMIREZ, first preg, 7 700 Ro Law Luis, 1522, weeks Center [address] [place] [address], gestation of Blas Du[place], 120, Center [id number], Panchito, [facility] 120, [place] Panchito RODRIGUEZ, tel:[phone] [place], , [place]. [id number]. tel: tel:[phone] Annamarie Flanagan Encntr for May-0 Peres Referring In Womens suprvsn of normal 9-201 Phyllis. Provider: Dipika RAMIREZ, first preg, 7 Ro Law Luis, 1522, [id number] weeks Center [address] [place] [address], gestation of Blas Duval, 120, Center [id number], Panchito [facility] 120, [place] Panchito RODRIGUEZ, tel:[phone] [place], , [place]. [id number]. tel: tel: [phone] Annamarie Flanagan Encntr for Apr-1 Peres Referring In Womens suprvsn of normal 0-201 Phyllis. Provider: Dipika RAMIREZ, first preg, 7 Ro Law Luis, 1522, [email or web address] weeks Center [address] [place] [address], gestation of Blas Duval, 120, Center [id number], Panchito [facility] 120, [place] Panchito RODRIGUEZ, tel:[phone] [place], , [place]. [id number]. tel: tel:[phone] Annamarie Flanagan Encntr for Apr-1 Peres Referring In Womens Ultrasound suprvsn of normal 0-201 Phyllis. Provider: Dipika RAMIREZ, first preg, 7 Ro Smith, 1522, [id number] weeks Center [address] [place] [address], gestation of Blas Duval, 120, Center [id number], Panchito, [facility] 120, [place] Panchito RODRIGUEZ, tel:[phone] [place], , [place]. [id number]. tel: tel:[phone] Annamarie Flanagan Encntr for Nov-1 Peres Referring In Womens suprvsn of normal - Phyllis. Provider: Dipika RAMIREZ, first preg, 7 700 Ro PO Box second Medical Law J, 1522, [id number] [facility] [place], gestation of Dr, Blas RODRIGUEZ, 120, Center [id number], Panchito [facility] 120, [place] Panchito RODRIGUEZ, tel: [phone] [place], , [place]. [id number]. tel: tel:[phone] Annamarie Flanagan Encntr screen for Feb- Peres Referring In Womens infections w sexl - Phyllis. Provider: Dipika RAMIREZ, mode of 7 700 Ro Calderón transmissEncounte Jose Thanh Smith, 1522, r for screening Center [address] [place] [address], for oth , Blas RODRIGUEZ, infec/parastc 120, Center [id number], [facility]ntr [facility], [place] for suprvsn of KSPanchito, tel:+ normal first [phone] [place], preg, first , [place]. [id number]. trimesterEncounte tel: tel: r for [phone] screening of [email or web address] weeks gestation of Annamarie Flanagan Irregular Menses Sep- Peres Referring In Womens -201 Phyllis. Provider: Dipika RAMIREZ, 7 700 Ro Calderón Jose Law J, 1522, Center [facility] [address] Medical [place], 120, Center [id number], Panchito [facility] 120, [place] Panchito RODRIGUEZ, tel: [phone] [place], , [place]. [id number]. tel: tel:[phone] Annamarie Flanagan Encounter for Osmel-0 Law Referring In Womens test, -201 Ro. Provider: Dipika RAMIREZ, result 7 700 Ro PO Box positiveEncounter Medical Thanh Smith, 1522, for Center [facility] [place], test, result Blas Duval, positive 120, Center [id number], state, incidental Flanagan, [facility] 120, [place] MICHAEL Flanagan, tel:[phone] MIC[place]EL, , . [id number]. tel: tel:[phone] [facility] Encntr for chronic manager Thanh Referring In Womens exam (general) 3-201 Ro. Provider: Health PA, (routine) w/o abn 6 700 Ro PO Box findingsPap Smear Medical Thanh J, 1522, Screening, Center 700 [place], CervixPap Smear , [facility], Screening, Cervix 120, Center [id number], Flanagan, [facility] 120, Panchito RODRIGUEZ, tel:[phone] MICHAEL, , . [id number]. tel: tel:[phone] Family History Family Member Diagnosis Age At [...] older Payers Payer name Insurance type Covered libertarian ID Authorization(s) [facility] [id number] [facility] Out Of State [id number] [facility] [id number] [facility] [id number] Social History Type Description Quantity Date Captured Alcohol Use Details Caffeine Use Details Unknown Tobacco Use Status Unknown Smoking Status Never smoker Vital Signs Date / Height Weight BMI Pulse Blood Temperature Respiratory Body Head BMI Time: Rate Pressure Rate Surface Circumference percentile Area 3 4:35 kg/m PM eter (2) Chief Complaint And Reason For Visit Unknown Chief Complaint And Reason For Visit Reason For Referral Reason For Referral Unknown Plan Of Care Date Type Action Status Appointment Herminia Salazar BOOKED Future Order: Radiology Order Ultrasound OB Follow-up ([id number]) Ordered Future Order: Lab Order Pap Smear With HPV Reflex If ASCUS Ordered ([id number]) Future Order: Radiology Order Complete OB Ultrasound > 14 Ordered Weeks ([id number]) Date Type Problem Goal Intervention Status Start [...]
--- OUTSIDE RECORDS SUMMARY | 2017-05-14 01:33 | External Medical Summary | Continuity of Care Document ---
:1990 Author Organization [facility] Address [address] [place], [place] [id number] Phone Support Name Relationship Address Phone Td Salazar spouse [address] [phone] [place] [address] Allergies, Adverse Reactions, Alerts Substance Reaction Severity [...] third trimester 31 weeks gestation of - Encounter for test, result - positive Encounter for test, result positive state, incidental Irregular Menses Uterine size-date discrepancy, third - trimester 32 weeks gestation of - Uterine size-date discrepancy, third - trimester Encntr for suprvsn of normal first - preg, third trimester 33 weeks gestation of - 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 (general) - (routine) w/o abn findings [...] second trimester 27 weeks gestation of - 19 weeks gestation of - Encntr for [...] Procedures Procedure Date OB Visit No Charge Immuniz admnin, 1 vac, sngl/combo 19 Yrs + TDAP VACCINE >7 IM Results Test Name Date and Time Measure Units Reference Range Abnormal Flag Comments Unknown Advance Directives Directive Yes / No Effective Date File Name Unknown Encounters Encounter Practice Location Reason(s) Diagnoses Date Provider Care Team Description For Visit Members Annamarie Flanagan Uterine size-date Sobbing Referring In Womens discrepancy, 0-201 Dionicio. Provider: Dipika RAMIREZ, third 7 700 Ro PO Box trimesterEncntr Jose Smith, 1522, for suprvsn of Center [address] [place] [address], preg, third Suite Center [id number], [email or web address] weeks 120, Blas 120, [place] gestation of Panchito Flanagan, tel:+ [place], [address], [id number]. [place]. tel: tel: [phone] Annamarie Flanagan Uterine size-date Sobbing Referring In Womens Ultrasound discrepancy, 3-201 Dionicio. Provider: Dipika RAMIREZ, third [email or web address] 7 700 Ro PO Box weeks gestation Jose Smith, 1522, of Center [address] [place] [address], Suite Center [id number], 120, Blas 120, [place] Panchito Flanagan, tel: [place], [place], [address], [id number]. [place]. tel: tel: [phone] [facility] Uterine size-date Mar- Sobbing Referring In Womens discrepancy, 6-201 Dionicio. Provider: Health ASHLEY, third 7 700 Ro PO Box trimesterEncntr Medical [facility], 1522, for suprvsn of Center [address] [place] [address], [address], Medical [place], preg, third Suite Center [id number], [email or web address] weeks 120, Blas 120, [place] gestation of Panchito Flanagan, tel: [place], [address], [id number]. [place]. tel: tel: [phone] [facility] Encntr for Amadou-1 Peres Referring In Womens suprvsn of normal - Phyllis. Provider: Health ASHLEY, first preg, third 7 700 Ro PO Box [email or web address] weeks Medical [facility], 1522, gestation of Center [address] [place] [address], Blas Duval [place], 120, Center [id number], Panchito, [facility] 120, [place] Panchito RODRIGUEZ, tel: [phone] [place], , [place]. [id number]. tel: tel: [phone] Annamarie Magallanesntr for Amadou-0 Peres Referring In Womens suprvsn of normal 5-201 Phyllis. Provider: Dipika RAMIREZ, first preg, 7 700 Ro PO Box second Medical [facility], 1522, [id number] weeks Center [address] [place] [address], gestation of Blas Duval, 120, Center [id number], Panchito, [facility] 120, [place] Panchito RODRIGUEZ, tel: [phone] [place], , [place]. [id number]. tel: tel: [phone] Annamarie Flanagan 23 weeks May-0 Peres Referring In Womens gestation of 9-201 Phyllis. Provider: Dipika RAMIREZ, pregnancyEncntr 7 700 Ro PO Box for suprvsn of Medical [facility], 1522, normal first Center [address] [place] [address], preg, second Blas Duval, trimester 120, Center [id number], Panchito Blas 120, [place] Panchito RODRIGUEZ, tel:+ [phone] [place], , [place]. [id number]. tel: tel:[phone] Annamarie Flanagan Encntr for Apr-1 Peres Referring In Womens suprvsn of normal 0-201 Phyllis. Provider: Dipika RAMIREZ, first preg, 7 700 Ro PO Box second Medical Thanh Smith, 1522, [id number] weeks Center [address] [place] [address], gestation of Blas Du[place], 120, Center [id number], Panchito, [facility] 120, [place] Panchito RODRIGUEZ, tel:[phone] [place], , [place]. [id number]. tel: tel:[phone] Annamarie Flanagan 19 weeks Apr-1 Peres Referring In Womens Ultrasound gestation of 0-201 Phyllis. Provider: Dipika RAMIREZ, pregnancyEncntr 7 700 Ro PO Box for suprvsn of Jose Smith, 1522, normal first Center [address] [place] [address], preg, second , [facility] Jose RODRIGUEZ, trimester 120, Center [id number], Panchito, [facility] 120, [place] Panchito RODRIGUEZ, tel:[phone] [place], , [place]. [id number]. tel: tel:[phone] Annamarie Magallanesntr for Mar-1 Peres Referring In Womens suprvsn of normal 4-201 Phyllis. Provider: Dipika RAMIREZ, first preg, 7 700 Ro PO Box [facility] Thanh Smith, 1522, [id number] weeks Center [address] [place] [address], gestation of Blas Duval, 120, Center [id number], Panchito, [facility] 120, [place] Panchito RODRIGUEZ, tel:[phone] [place], , [place]. [id number]. tel: tel:[phone] Annamarie Flanagan Encntr screen for Feb-1 Peres Referring In Womens infections w sexl 4-201 Phyllis. Provider: Dipika RAMIREZ, mode of 7 700 Ro PO Box transmissEncounte Jose Smith, 1522, r for screening Center [address] [place] [address], for oth Blas [place], infec/parastc 120, Center [id number], diseasesEncntr Panchito [facility] 120, [place] for suprvsn of Panchito RODRIGUEZ, tel:+[phone] normal first [place], preg, first , [place]. [id number]. trimesterEncounte tel: tel:[phone] r for [phone] screening of [id number] weeks gestation of [facility] Irregular Menses Peres Referring In Womens Phyllis. Provider: Dipika RAMIREZ, 7 700 Ro PO Box Medical Thanh Smith, 1522, Center 700 [place], Blas [place], 120, Center [id number], Panchito [facility] 120, [place] Panchito RODRIGUEZ, tel:[phone] [place], , [place]. [id number]. tel: tel:[phone] Annamarie Flanagan Encounter for Thanh Referring In Womens test, Ro. Provider: Health ASHLEY, result 7 700 Ro PO Box positiveEncounter Medical Thanh Smith, 1522, for Center 700 [place], test, result Blas [place], positive 120, Center [id number], state, incidental Panchito [facility] 120, [place] Panchito RODRIGUEZ, tel:[phone] [place], , [place]. [id number]. tel: tel:[phone] Annamarie Flanagan Encntr for director of clinical education Thanh Referring In Womens exam (general) - Ro. Provider: Health ASHLEY, (routine) w/o abn 6 700 Ro PO Box findingsPap Smear Jose Smith, 1522, Screening, Center 700 Ang[place], CervixPap Smear Blas [place], Screening, Cervix 120, Center [id number], Panchito [facility] 120, [place] Panchito RODRIGUEZ, tel:[phone] [place]HAEL, , [place]. [id number]. tel: tel:[phone] Family History Family Member Diagnosis Age At [...] name Insurance type Covered democrat ID Authorization(s) [facility] [id number] [facility] Out Of State [id number] [facility] [id number] [facility] [id number] Social History Type Description Quantity Date Captured Alcohol Use Details Caffeine Use Details Unknown Tobacco Use Status Unknown Smoking Status Never smoker Vital Signs Date / Height Weight BMI Pulse Blood Temperature Respiratory Body Head BMI Time: Rate Pressure Rate Surface Circumference percentile Area 149.30 27.9 116/73 -2017 lbs 3 mm[Hg] 3:52 kg/m PM eter (2) 149.30 27.9 -2017 lbs 3 3:51 kg/m PM eter (2) Chief Complaint And Reason For Visit Unknown Chief Complaint And Reason For Visit Reason For Referral Reason For Referral Unknown Plan Of Care Date Type Action Status Appointment Herminia Salazar BOOKED Future Order: Radiology Order Ultrasound OB Follow-up ([id number]) Ordered Future Order: Lab Order Pap Smear With HPV Reflex If ASCUS Ordered ([id number]) Future Order: Radiology Order Complete OB Ultrasound > 14 Ordered Weeks ([id number]) Date Type Problem Goal Intervention Status Start [...] influenza vaccine environmental / work hazards travel HIV and other routine tests tobacco (ask, advise, assess, assist and arrange) alcohol illicit / recreational drugs use of any medications (including supplements, vitamins, herbs, OTC drugs) smoking counseling domestic violence seat belt use childbirth classes / hospital facilities hospital registration genetic testing new ob handbook
--- OUTSIDE RECORDS SUMMARY | 2017-05-14 01:33 | External Medical Summary | Continuity of Care Document ---
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) - (routine) w/o abn findings Pap Smear Screening, Cervix Encntr for suprvsn of normal first - preg, first trimester Encntr screen for infections w sexl - mode of transmiss Encounter for screening for oth - infec/parastc diseases Encounter for screening of - mother 11 weeks gestation of - Encntr for suprvsn of normal first - preg, second trimester 15 weeks gestation of - Encntr for suprvsn of normal first - preg, second trimester 27 weeks gestation of - Uterine size-date discrepancy, third - trimester Encntr for suprvsn of normal first - preg, third trimester 33 weeks gestation of - Encntr for suprvsn of normal first - preg, second trimester 19 weeks gestation of - 19 weeks gestation [...] Procedure Date OB Visit No 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 Provider: formerly [facility], third 7 [address] MCKEON Box trimesterEncntr Medical Thanh Smith, 1522, for suprvsn of Center [address], [address], [place], preg, third Suite Center [id number], weeks 120, Blas 120, [place] gestation of Panchito Flanagan, tel: MICHAEL, MICHAEL, [address], [id number]. [place]. tel: tel: [phone] Annamarie Flanagan Uterine size-date Aug-2 Sobbing Referring In Womens discrepancy, 2-201 Dionicio. Provider: Dipika RAMIREZ, third 7 [address] Calderón trimesterEncntr Jose Smith, 1522, for suprvsn of Center [address] [place] [address], machipongo first [facility], preg, third Suite Center [id number], weeks 120, Bals 120, [place] gestation of Panchito Flanagan, tel: MICHAEL RODIRGUEZ, [address], [id number]. [place]. tel: tel: [phone] Annamarie Flanagan Encntr for Aug-1 Sobbing Referring In Womens suprvsn of normal 6-201 Velva. Provider: Dipika RAMIREZ, first preg, third 7 700 [address] Calderón weeks Jose Smith, 1522, gestation of Center [address] [place] [address], Suite Center [id number], 120, Blas 120, [place] Panch[place] Flanagan, tel: MICHAEL MICHAEL, [address], [id number]. [place]. tel: tel: [phone] Annamarie Flanagan Encntr for Aug-1 Sobbing Referring In Womens suprvsn of normal 0-201 Velva. Provider: Dipika RAMIREZ, first preg, third 7 700 [address] Calderón [email or web address] weeks Jose Smith, 1522, gestation of Center [address] [place] [address], [facility], Suite Center [id number], 120, Blas 120, [place] P[place] Flanagan, tel: MICHAEL MICHAEL, 114, [id number]. [place]. tel: tel: [phone] Annamarie Flanagan Uterine size-date Aug-0 Sobbing Referring In Womens discrepancy, 3-201 Velva. Provider: Dipika RAMIREZ, third 7 [address] Calderón trimesterEncounte Jose Smith, 1522, r for Center [address] [place] [address], screening of [facility], [email or web address] weeks Suite Center [id number], gestation of 120, Blas 120, [place] Panch[place] Flanagan, tel: MICHAEL RODRIGUEZ, [address], [id number]. [place]. tel: tel: [phone] Annamarie Flanagan Uterine size-date Yasmani-2 Sobbing Referring In Womens discrepancy, 0-201 Velva. Provider: Dipika RAMIREZ, third 7 700 [address] Calderón trimesterEncntr Jose Smith, 1522, for suprvsn of Center [address] [place] [address], [facility], preg, third Suite Center [id number], [email or web address] weeks 120, Blas 120, [place] gestation of Panchito Flanagan, tel: MICHAEL RODRIGUEZ, [address], [id number]. [place]. tel: tel: [phone] Annamarie Flanagan Uterine size-date Yasmani-1 Sobbing Referring In Womens Ultrasound discrepancy, 3-201 Velva. Provider: Dipika RAMIREZ, third [email or web address] 7 700 [address] MCKEON Box weeks gestation Jose Smith, 1522, of Center [address] [place] [address], Suite Center [id number], 120, Blas 120, [place] P[place] Flanagan, tel: MICHAEL MICHAEL, [address], [id number]. [place]. tel: tel: [phone] Annamarie Flanagan Uterine size-date Yasmani-0 Sobbing Referring In Womens discrepancy, 6-201 Velva. Provider: Dipika RAMIREZ, third 7 700 [address] Calderón trimesterEncntr Jose Smith, 1522, for suprvsn of Center [address] [place] [address], [facility] MICHAEL, preg, third Suite Center [id number], [email or web address] weeks 120, Blas 120, [place] gestation of Panchito Flanagan, tel: MICHAEL RODRIGUEZ, [address], [id number]. [place]. tel: tel: [phone] Annamarie Kirkland for Amadou-1 Peres Referring In Womens suprvsn of normal 9-201 Phyllis. Provider: Dipika RAMIREZ, first preg, third 7 700 Ro PO Box [email or web address] weeks Medical Law J, 1522, gestation of Center [address], [place], 120, Center [id number], Panchito [facility] 120, [place] Panchito RODRIGUEZ, tel:+ [phone] [place], , [place]. [id number]. tel: tel:[phone] Annamarie Magallanesntr for Amadou-0 Peres Referring In Womens suprvsn of normal 5-201 Phyllis. Provider: Dipika RAMIREZ, first preg, 7 700 Ro PO Box second Medical Law J, 1522, [email or web address] weeks Center [address], gestation of Blas [place], 120, Center [id number], Panchito [facility] 120, [place] Panchito RODRIGUEZ, tel:[phone] [place], , [place]. [id number]. tel: tel:[phone] Annamarie Flanagan 23 weeks May-0 Peres Referring In Womens gestation of 9-201 Phyllis. Provider: Dipika RAMIREZ, pregnancyEncntr 7 700 Ro PO Box for suprvsn of Medical Law J, 1522, normal first Center [address] [place] [address], preg, second Blas [place], trimester 120, Center [id number], Panchito [facility] 120, [place] Panchito RODRIGUEZ, tel:[phone] [place], , [place]. [id number]. tel: tel:[phone] Flanagan 19 weeks Apr-1 Peres Referring In Womens gestation of 0-201 Phyllis. Provider: Dipika RAMIREZ, pregnancyEncntr 7 700 Ro PO Box for suprvsn of Medical Law J, 1522, normal first Center [address], preg, second Blas [place], trimester 120, Center [id number], Panchito [facility] 120, [place] Panchito RODRIGUEZ, tel:[phone] [place], , [place]. [id number]. tel: tel:[phone] Annamarie Flanagan Encntr for Apr-1 Peres Referring In Womens Ultrasound suprvsn of normal 0-201 Phyllis. Provider: Health ASHLEY, first preg, 7 Ro Calderón second Jose Law J, 1522, [email or web address] weeks Center [facility] [place], gestation of Blas [place], 120, Center [id number], [facility] 120, [place] Panchito RODRIGUEZ, tel:+ [phone] MICHAEL, , [place]. [id number]. tel: tel:[phone] Associates [facility] Encntr for Peres Referring In Womens suprvsn of normal 4-201 Phyllis. Provider: Health ASHLEY, first preg, 7 Ro Calderón second Jose Law J, 1522, [id number] weeks Center [facility] [place], gestation of Blas [place], 120, [place] [id number], [facility] 120, [place] Panchito RODRIGUEZ, tel:[phone] [place], , [place]. [id number]. tel: tel:[phone] Annamarie Kirkland for Peres Referring In Womens suprn of normal 4-201 Phyllis. Provider: Dipika RAMIREZ, first preg, first 7 Ro Calderón trimesterEncntr Jose Law Luis, 1522, screen for Center [facility] [place], infections w sexl Blas [place], mode of 120, [place] [id number], transmissEncounte Flanagan, [facility] 120, [place] r for screening Panchito RODRIGUEZ, tel: for oth [phone] [place], infec/parastc , [place]. [id number]. diseasesEncounter tel: tel:[phone] screening of weeks gestation of Associates [place] Irregular Menses Peres Referring In Womens 7-201 Phyllis. Provider: Dipika RAMIREZ, 7 Ro Law J, 1522, Center [facility] [place], [place], 120, Center [id number], [facility] 120, [place] Panchito RODRIGUEZ, tel:[phone] MICHAEL, , [place]. [id number]. tel: tel:[phone] Annamarie Flanagan Encounter for 0 Law Referring In Womens test, 201 Ro. Provider: Dipika RAMIREZ, result 7 700 Ro PO Box positiveEncounter Jose Smith, 1522, for Center [address] [place], test, result Bl[place], positive 120, Center [id number], state, incidental Flanagan, [facility] 120, Panchito RODRIGUEZ, tel: [phone] [place], , [place]. [id number]. 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 Provider: Dipika RAMIREZ, (routine) w/o abn 6 700 Ro PO Box findingsPap Smear Jose Smith, 1522, Screening, Center [address], CervixPap Smear Blas [place], Screening, Cervix 120, Center [id number], Flanagan, [facility] 120, [place] Panchito RODRIGUEZ, tel: [phone] MICHAEL, , [place]. [id number]. tel: tel:[phone] Family History Family Member Diagnosis Age At [...] name Insurance type Covered democrat ID Authorization(s) [facility] [id number] [employer] Out Of State BL [id number] [facility] [id number] [facility] [id number] Social History Type Description Quantity Date Captured Alcohol Use Details Caffeine Use Details Unknown Tobacco Use Status Unknown Smoking Status Never smoker Vital Signs Date / Height Weight BMI Pulse Blood Temperature Respiratory Body Head BMI Time: Rate Pressure Rate Surface Circumference percentile Area 29.0 4 4:04 kg/m PM eter (2) 155.80 29.1 117/68 -2017 lbs 5 mm[Hg] 4:18 kg/m PM eter (2) Chief Complaint And Reason For Visit Unknown Chief Complaint And Reason For Visit Reason For Referral Reason For Referral Unknown Plan Of Care Date Type Action Status Appointment Herminia Salazar [facility] -[place] [facility]- BOOKED [place] Future Order: Radiology Order Ultrasound OB Follow-up ([id number]) Ordered Future Order: Lab Order Pap Smear With HPV Reflex If ASCUS Ordered ([id number]) Future Order: Radiology Order Complete OB Ultrasound > 14 Ordered Weeks ([id number]) Date Type Problem Goal Intervention Status Start [...]
--- OUTSIDE RECORDS SUMMARY | 2017-05-14 01:33 | External Medical Summary | Continuity of Care Document ---
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 Provider: [employer] MD, third 7 700 Ro PO Box trimesterEncntr Jose Smith, 1522, for suprvsn of Center [address] [place] [address], preg, third Suite Center [id number], [email or web address] weeks 120, Blas 120, [place] gestation of Panchito Flanagan, tel:+ [place], [address], [id number]. [place]. tel: tel: [phone] Annamarie Flanagan Uterine size-date Mar-1 Sobbing Referring In Womens Ultrasound discrepancy, 3-201 Dionicio. Provider: [employer] MD, third [email or web address] 7 700 Ro PO Box weeks gestation Jose Smith, 1522, of Center [address] [place] [address], Suite Center [id number], 120, Blas 120, [place] Panchito Flanagan, tel:+[phone] [place], [address], [id number]. [place]. tel: tel: [phone] Annamarie Flanagan Uterine size-date Mar-0 Sobbing Referring In Womens discrepancy, 6-201 Sharon. Provider: Dipika RAMIREZ, third 7 700 Ro PO Box trimesterEncntr Medical Thanh Smith, 1522, for suprvsn of Center [address] [place] [address], normal first [facility], [facility] MICHAEL, preg, third Suite Center [id number], weeks 120, Blas 120, [place] gestation of Panchito Flanagan, tel:+ [place], [address], [id number]. [place]. tel: tel: [phone] Annamarie Flanagan Yasmani-0 Sobbing In Womens 3-201 Dionicio. Health ASHLEY, 7 700 PO Box Medical 1522, Center [place], [facility], [place], Suite , 120, [place], [place]: [place], [address], [place]. tel: [phone] Annamarie Flanagan Encntr for Amadou-1 Peres Referring In Womens suprvsn of normal 9-201 Phyllis. Provider: Dipika RAMIREZ, first preg, third 7 700 Ro PO Stephane [email or web address] weeks Medical Thanh Smith, 1522, gestation of [address], Bals [place] [facility], 120, [place] [id number], [facility] 120, [place] Panchito RODRIGUEZ, tel:[phone] [place], , [place]. [id number]. tel: tel: [phone] Annamarie Magallanesntjake for Amadou-0 Peres Referring In Womens suprvsn of normal 5-201 Phyllis. Provider: Dipika RAMIREZ, first preg, 7 700 Ro PO Box second Medical Law Luis, 1522, [email or web address] [address], gestation of Bl[place], 120, Center [id number], [facility] 120, [place] Panchito RODRIGUEZ, tel:[phone] [place], , [place]. [id number]. tel: tel: [phone] Annamarie Flanagan 23 weeks May-0 Peres Referring In Womens gestation of 9-201 Phyllis. Provider: Dipika RAMIREZ, pregnancyEncntr 7 700 Ro PO Box for suprvsn of Medical Law J, 1522, normal first Center [address] [place] [address], preg, second [place], trimester 120, Center [id number], Panchito, [facility] 120, [place] Panchito RODRIGUEZ, tel:[phone] [place], , [place]. [id number]. tel: tel:[phone] Annamarie Flanagan Encntr for Apr-1 Peres Referring In Womens suprvsn of normal 0-201 Phyllis. Provider: Dipika RAMIREZ, first preg, 7 700 Ro PO Box second Medical [place] J, 1522, [email or web address] weeks Center [address] [place], gestation of Blas [place], 120, Center [id number], Panchito, [facility] 120, [place] Panchito RODRIGUEZ, tel:[phone] [place], , [place]. [id number]. tel: tel:[phone] Annamarie Flanagan 19 weeks Apr-1 Peres Referring In Womens Ultrasound gestation of 0-201 Phyllis. Provider: Dipika RAMIREZ, pregnancyEncntr 7 700 Ro PO Box for suprvsn of Medical [place] J, 1522, normal first Center [address] [place], preg, second [place], trimester 120, Center [id number], Panchito, [facility] 120, [place] Panchito RODRIGUEZ, tel:[phone] MICHAEL, , [place]. [id number]. tel: tel:[phone] Annamarie Flanagan Encntr for Mar-1 Peres Referring In Womens suprvsn of normal 4-201 Phyllis. Provider: Dipika RAMIREZ, first preg, 7 700 Ro PO Box second Medical [place] J, 1522, [email or web address] weeks Center [address] [place], gestation of Blas [place], 120, Center [id number], Panchito, [facility] 120, [place] Panchito RODRIGUEZ, tel:[phone] MICHAEL, , [place]. [id number]. tel: tel:[phone] Annamarie Flanagan Encntr screen for Feb-1 Peres Referring In Womens infections w sexl 4-201 Phyllis. Provider: Dipika RAMIREZ, mode of 7 700 Ro PO Box transmissEncounte Jose Thanh Smith, 1522, r for screening Center [address] [place] [address], for oth , [facility] MICHAEL, infec/parastc 120, Center [id number], diseasesEncntr Panch[place], [facility] 120, [place] for suprvsn of Panchito RODRIGUEZ, tel:[phone] normal first [id number] [place], preg, first , [place]. [id number]. trimesterEncounte tel: tel:[phone] r for [phone] screening of weeks gestation of Associates [facility] Irregular Menses Peres Referring In Womens 7- Phyllis. Provider: Dipika RAMIREZ, 7 700 Ro PO Box Jose Thanh Smith, 1522, [facility] [place], , [facility] Jose RODRIGUEZ, 120, Center [id number], Panchito [facility] 120, [place] Panchito RODRIGUEZ, tel:[phone] [place], , [place]. [id number]. tel: tel:[phone] Annamarie Flanagan Encounter for Law Referring In Womens test, 4-201 Ro. Provider: Health ASHLEY, result 7 Ro PO Box positiveEncounter Jose Thanh Smith, 1522, for Center [address] [place] [address], test, result , Blas RODRIGUEZ, positive 120, Center [id number], state, incidental Panchito, [facility] 120, [place] Panchito RODRIGUEZ, tel:[phone] [place], , [place]. [id number]. 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 Provider: Health ASHLEY, (routine) w/o abn 6 700 Ro PO Box findingsPap Smear Jose Smith, 1522, Screening, Center [address] [place] [address], CervixPap Smear , [facility] MICHAEL, Screening, Cervix 120, Center [id number], Panchito [facility] 120, [place] Panchito RODRIGUEZ, tel:[phone] MICHAEL, , [place]. [id number]. tel: tel:[phone] Family History Family Member Diagnosis Age At [...] older Payers Payer name Insurance type Covered green party ID Authorization(s) [facility] [id number] [facility] Out Of State [id number] [facility] [id number] [facility] [id number] Social History Type Description Quantity Date Captured [...] Future Order: Radiology Order Ultrasound OB Follow-up ([id number]) Ordered Future Order: Lab Order Pap Smear With HPV Reflex If ASCUS Ordered ([id number]) Future Order: Radiology Order Complete OB Ultrasound > 14 Ordered Weeks ([id number]) Date Type Problem Goal Intervention Status Start [...]
[2017-05-14] MEDS ORDERED: MAG-AL + SIM ORAL LIQUID 30ml PO PRN ×2 (01:46→20:33)
[2017-05-14] MEDS ORDERED: ACETAMINOPHEN 500 MG TABLET PO PRN ×2 (01:46→20:33)
[2017-05-14] MEDS ORDERED: CARBOPROST 250 MCG/ML INJECTION IM PRN (01:46)
[2017-05-14] MEDS ORDERED: LIDOCAINE 1% (10mg/ml) 2mL INJ PF SDV ID PRN (01:46)
[2017-05-14] MEDS ORDERED: CALCIUM CARBONATE Chewable 500mg TABLET PO PRN ×2 (01:46→20:33)
[2017-05-14] MEDS ORDERED: METHYLERGONOVINE 0.2 MG/ML INJECTION IM PRN (01:46)
[2017-05-14] MEDS: LR 1,000 ML IV PRN ×3 (02:04→15:47)
[2017-05-14] MEDS ORDERED: NALBUPHINE 10 MG/ML INJECTION IVP PRN (02:59)
[2017-05-14] MEDS ORDERED: OXYTOCIN DRIP 30 UNIT/500 ML ML IV PRN (05:02)
[2017-05-14] MEDS: D5LR 1,000 ML IV PRN ×2 (05:04→14:21)
--- NOTE | 2017-05-14 07:00 | Anesthesia Preoperative Report ---
Anesthesia Epidural/Spinal Rec - Date and Time Date: 05/14/17 Preoperative Diagnosis: Term SROM Procedure: Labor Epidural Plan: Epidural - Vital Signs /Para: P:0 - Medictaions & Allergies Inpatient Medications: Current Medications Acetaminophen (Tylenol) 500 - 1,000 mg PO Q4H PRN PRN Reason: Pain Al Hydroxide/Mg Hydroxide (Maalox Plus) 30 ml PO Q3H PRN PRN Reason: Indigestion Calcium Carbonate (Tums) 500 - 1,000 mg PO Q2H PRN PRN Reason: Indigestion Carboprost Tromethamine (Hemabate) 250 mcg IM O PRN PRN Reason: .Downtime Lactated Ringer's (Lactated Ringers) 1,000 mls @ 999 mls/hr IV .Q1H1M PRN Last Admin: 05/14/17 02:04 Dose: 999 mls/hr Dextrose/Lactated Ringer's (Dextrose 5%-Lactated Ringers) 1,000 mls @ 125 mls/ hr IV .Q8H PRN PRN Reason: Labor Last Admin: 05/14/17 05:04 Dose: 125 mls/hr Oxytocin (Pitocin Drip) 30 unit in 500 mls @ 2 mls/hr IV .Q24H PRN; Protocol PRN Reason: Induction/Augmentation Last Admin: 05/14/17 05:03 Dose: 2 mls/hr Lidocaine HCl (Xylocaine-Mpf 1% Vial) 0.2 mg ID O PRN PRN Reason: IV Start Methylergonovine Maleate (Methergine) 0.2 mg IM O PRN Misoprostol (Cytotec) 800 mcg [place] ONCE PRN Nalbuphine HCl (Nubain) 5 - 10 mg IVP ONE TIME PRN Last Admin: 05/14/17 03:10 Dose: 5 mg Allergies/Adverse Reactions: Allergies Allergy/AdvReac Type Severity Reaction Status Date / Time No Known Allergies Allergy Verified 04/28/17 18:06 - Home Medications Home Medications: Home Medications Medication Instructions Recorded Confirmed Type Prenat 115/Iron Fum/Folic/Dss 1 each PO 05/14/17 History [ 19 Tablet] - Medical History Respiratory: DENIES: Asthma, Bronchitis, Chronic Obstructive Pulmonary Disease (COPD), Dyspnea, Orthopnea, Pulmonary Embolism, Pneumonia, Upper Respiratory Infection, Pulmonary Edema, Sleep Apnea, Tuberculosis, Other Cardiovascular: DENIES: Abnormal EKG, Angina, Arrhythmia, Congestive Heart Failure, Coronary Artery Disease, Heart Murmur, Hypertension, Hypotension, High Cholesterol, Myocardial Infarction, Rheumatic Fever, Valvular Heart Disease, Other Gastrointestional: DENIES: Obstructive Bowel, Hepatitis, Cirrhosis, Nausea or Vomiting Present, Gastroesophageal Reflux Disease, Gastrointestinal Bleeding, Hiatal Hernia, Ulcer , Morbid Obesity, Other Neuro/Musculoskeletal: Denies: HX.MS.OSAR, Back Problems, Cerebrovascular Accident, Depression, Headaches, Loss of Consciousness, Muscle Weakness, Neuromuscular Disorder, Paralysis, Paresthesia, Syncope, Seizures, Other Renal/Endocrine: DENIES: Diabetes Mellitus Type 1, Diabetes Mellitus Type 2, Renal Failure, Dialysis, Thyroid Disease, Weight Loss, Weight Gain, Other Other History: Reports: Now DENIES: Anesthesia Reactions, Blood Transfusions, Chemotherapy, Cancer, Hemophilia, Malignant Hyperthermia, Sickle Cell Disease, Other - Surgical History Hx Family Anesthesia Reaction: No History of Motion Sickness: No - Social History Smoking Status: Never smoker Second Hand Exposure: No Substance Use Type: does not use Alcohol Intake: never Alcohol Intake Frequency: does not drink Hx Chewing Tobacco Use: No - Pertinent Findings Lab Data: CBC and BMP 05/14/17 01:59 - Physical Exam Respiratory Exam: lungs clear, bilateral breath sounds equal Cardiovascular Exam: regular rate and rhythm, no murmur - Airway Assessment Mallampati Score: II TMD: 3 Fingerbreadths Neck Extension: good Overall Assessment: may be difficult mask vent, may be difficult intubation - ASA ASA Score: 2 - Discussion Discussion: Discussed risks/options/alternatives of anesthesia and questions answered. Patient consents. Nursing pain assessment noted. Anesthesia Discussion: spouse Attestation Statement: Prior to the delivery of any anesthetic medication, I examined the patient, developed the plan, obtained the patient's consent and discussed the risk and benefits of the procedure with the patient/guardian.
--- NOTE | 2017-05-14 08:12 | OB/GYN Progress Note ---
- Pain Control Pain control: Epidural Comments: Comfortable - Pelvic Exam Dilation (cm): 2 Effacement (%): 80 station: -3 Amniotic membrane status: Ruptured - Contractions Monitor mode: External Contraction frequency: 3 Contraction pattern: Regular Contraction intensity: Moderate - Status status: Category l - Assessment and Plan Assessment: induction ongoing
[2017-05-14] MEDS ORDERED: DiphenhydrAMINE 50 MG/ML INJECTION IVP PRN (13:04)
[2017-05-14] MEDS ORDERED: NALOXONE 0.4 MG/ML INJECTION IVP PRN (13:04)
[2017-05-14] MEDS ORDERED: ROPIVACAINE 1% 10MG/ML INJ 200 MG, SUFentanil 50 MCG in NS 100 ML EPI PRN (13:04)
[2017-05-14] MEDS ORDERED: ONDANSETRON 4 MG/2 ML INJECTION IVP PRN (13:04)
--- NOTE | 2017-05-14 17:45 | OB/GYN Procedure Note ---
Events: Labor Augmentation Delivery augmentation: pitocin Delivery monitor: external uterine Route of delivery: Episiotomy description: None Laceration description: Perineal - 2nd Degree Delivery repair: vicrylelio Estimated blood loss (mL): 400 Anesthesia type: Epidural Disposition: floor - [place] Baby 1 gender: Female presentation: Vertex position: Vertex-by exam Placenta delivery description: Spontaneous cord vessel description: 3 Vessels at 1 minute: 8 at 5 minutes: 9
--- NOTE | 2017-05-14 19:10 | Anesthesia Postoperative Note ---
- Date and Time Date: 05/14/17 - Status Patient Participated in Evaluation: Patient Participated in Person Respiratory Function: Airway Patent Cardiovascular Function: Regular Pulse EKG Rhythm: Normal Sinus Rhythm Mental Status: Alert and Oriented Hydration: Taking PO Fluids Complications During Recover: None Apparent Post Anesthesia Care Notes: Epidural worked well. pt very comfortable at this time. epidural cath removed per protocol. - Follow-Up Instructions Instructions: Per Surgeon
[2017-05-14] MEDS ORDERED: HYDROCORTISONE 2.5% CREAM 30gm RECTALLY PRN (20:33)
[2017-05-14] MEDS ORDERED: DiphenhydrAMINE 25 MG CAPSULE PO PRN (20:33)
[2017-05-14] MEDS: IBUPROFEN 800 MG TABLET PO PRN (20:39)
[2017-05-14] MEDS: Oxycodone/Acetaminophen 5/325 1 TAB PO PRN (22:42)
[2017-05-15 02:51] VITALS: RESP 16
[2017-05-15] MEDS: DOCUSATE CALCIUM 240 MG CAPSULE PO SCH ×2 (07:51→17:27)
[2017-05-15] MEDS: IBUPROFEN 800 MG TABLET PO PRN ×2 (07:51→17:28)
--- NOTE | 2017-05-15 09:40 | Labor and Delivery Note ---
DATE OF DELIVERY: 05/14/2017 DELIVERY NOTE This was a spontaneous vaginal delivery over intact perineum of a viable female in the left occiput anterior position. Weight of the fetus was 7.2 pounds with Apgars of 8/9 and name of [place]. Epidural anesthesia was provided during labor and delivery. Spontaneous delivery of the placenta happened approximately 5 minutes after delivery of the fetus. A second -degree perineal laceration was repaired using 2-0 Vicryl and two bilateral labials were repaired using 3-0 Monocryl. Estimated blood loss was 400 ml. Patient was actively managed in the third stage of labor with IV Pitocin. Patient presented at approximately 1 o'clock in the morning on the date of 05/14 with regular onset of contractions and while she was changing to be evaluated on Labor and Delivery she had spontaneous rupture of her membranes. She was admitted at that time and watched as she was isha. Then at 5 a.m. it was noted she had not changed her cervix and Pitocin was started. She progressed to approximately 2 cm at 7 a.m. and a Owens bulb was placed. The Owens bulb was out within one hour and patient was noted to be 4 cm. At this time Pitocin was continued to increase, the patient had regular contractions and the fetus was tolerating labor well. She was noted at noon to be 8 cm dilated but was having variable decelerations and the Pitocin was halved to 10 from 20. Patient continued to labor from 8-9 to AC and at 4 p.m. the anterior lip of the cervix was reduced and was resolved. Patient then started pushing and pushed for approximately an [id number] and then delivered the fetus. Total Pitocin used was 10 units for labor. Estimated blood loss was normal. After delivery of the head there was loss of contraction, but the head restituted, the patient was reapplied into the dorsal lithotomy position and the shoulder delivered with ease. Mom and were doing well. Patient was GBS negative, 0 positive and rubella immune. MTDD
--- NOTE | 2017-05-15 10:30 | OB/GYN Progress Note ---
OB-PP Progress Note - General PPD1 Maternal Group B Strep: Negative Maternal blood type: O+ Maternal Rubella Status: Immune - Subjective Date: 05/15/17 Lochia: Minimal Pain: contolled Voiding: voiding - Objective Vital Signs: Last Vital Signs Temp 98 F 05/15/17 05:00 Pulse 77 05/15/17 05:00 Resp 16 05/15/17 05:00 BP 104/72 05/15/17 05:00 General: alert and oriented Respiratory: non-labored Abdomen: fundus firm, non-tender Extremities: non-tender Edema: none - Assessment Assessment: SP, - Plan Plan: routine care, discharge home
--- NOTE | 2017-05-15 10:33 | Discharge Instructions ---
Discharge Plan - Med Rec/Dispo Referrals/Follow Up: Dionicio Ash DO [Physician] - [place] Instructions: [facility] Vaginal Delivery Prescriptions: New Oxycodone/APAP 5/325 [Percocet 5/325] 1 - 2 tab PO Q4H PRN #30 tab PRN Reason: Pain Ibuprofen [Motrin] 800 mg PO Q8H PRN #30 tab PRN Reason: Pain Discontinued Prenat 115/Iron Fum/Folic/Dss [ 19 Tablet] 1 each PO - Disposition 01 Discharged Home, Self-Care
[2017-05-15] MEDS: Oxycodone/Acetaminophen 5/325 1 TAB PO PRN (10:42)
[2017-05-15 18:41] VITALS: BP 105/68; PULSE 82; TEMP 98; O2SAT 99
== END 2017-05-15 19:50 | disposition home or self-care (01) | DRG 775 ==
LOC: MC 05-14 01:25
PROVIDERS: ADMIT Obstetrics & Gynecology; ATTEND Obstetrics & Gynecology